=== PATIENT | male | born 1985 | race Caucasian/White ===

== ENCOUNTER 2021-08-03 13:32 | Emergency (ER) | payer OTHER, SELFPAY ==
[2021-08-03 13:38] VITALS: BP 140/89; PULSE 83; RESP 18; TEMP 37.2; O2SAT 99; BMI 36.1
--- NOTE | 2021-08-03 13:49 | DI.RAD.S_ITS ---
PROCEDURE: XR KNEE RT 3V INDICATIONS: pain right knee, worsening since Tuesday TECHNIQUE: 3 views of the knee were acquired. COMPARISON: None. FINDINGS: Bones: No fractures or dislocations. No suspicious bony lesions. No patellar subluxation. Soft tissues: No joint effusion. No suspicious soft tissue calcifications. IMPRESSION: No acute right knee fracture or dislocation. No significant joint effusion. Dictated by: Judah Borrero M.D. on 08/03/2021 at 15:03 Approved by: Judah Borrero M.D. on 08/03/2021 at 15:03
== END 2021-08-03 16:39 | disposition left against medical advice (07) ==
PROVIDERS: Emergency Provider Emergency Medicine
DX: M25.561 Pain in right knee (principal)
CPT/HCPCS: 73562; 99283